=== PATIENT | female | born 1970 | race Caucasian/White ===

== ENCOUNTER 2020-05-10 21:49 | Emergency (ER) | payer SELFPAY ==
[~2020-05-10] VITALS: Ht 172.7 cm; Wt 79.4 kg
[~2020-05-10 21:49] MED LIST: LEVAQUIN500 M1 PO; VITAMIN C125 MG PO; VITAMIN D-40400 UNIT PO; ZINC50 M4 PO
[2020-05-10 22:12] VITALS: BP 127/80; Ht 172.7 cm; Wt 79.4 kg
== END 2020-05-10 23:40 | disposition home or self-care (01) ==
LOC: ED 21:49
DX: S46.811A Strain of other muscles, fascia and tendons at shoulder and upper arm level, right arm, initial encounter (principal); S86.811A Strain of other muscle(s) and tendon(s) at lower leg level, right leg, initial encounter; S39.012A Strain of muscle, fascia and tendon of lower back, initial encounter; F17.210 Nicotine dependence, cigarettes, uncomplicated; Z88.0 Allergy status to penicillin; V89.2XXA Person injured in unspecified motor-vehicle accident, traffic, initial encounter; Y93.55 Activity, bike riding; Y92.413 State road as the place of occurrence of the external cause; Y99.8 Other external cause status
CPT/HCPCS: 90715; J1885; Q0092; Q0162